=== PATIENT | male | born 1945 | race Caucasian/White ===

== ENCOUNTER → 2016-09-20 | Outpatient (CLI) | payer MEDICARE, OTHER ==
[~2016-09-20] MED LIST: CELE-19 PO; COUM1TAB17 PO; LYRI75CA PO; PERC5TAB6 PO; TYLETAB14 PO; vicodin OR
[2016-09-20 12:48] LABS: MEAN CORPUSCULAR HEMOGLOBIN 34.7 pg (27.0-33.0); MEAN CORPUSCULAR HGB CONC 33.7 g/dl (32.0-36.5); MEAN CORPUSCULAR VOLUME 103.2 fl (80.0-96.0); RED CELL DISTRIBUTION WIDTH 12.3 % (11.5-14.5); WHITE BLOOD COUNT 8.6 K/mm3 (4.0-10.0)
[2016-09-20 12:52] LABS: INR 0.97
[2016-09-20 13:32] LABS: ALBUMIN 4.2 GM/DL (3.2-5.2); ALBUMIN/GLOBULIN RATIO 1.14 (1.00-1.93); ALKALINE PHOSPHATASE 88 U/L (45-117); ALT/SGPT 32 U/L (12-78); ANION GAP 8 MEQ/L (8-16); AST/SGOT 29 U/L (15-37); BILIRUBIN,TOTAL 0.5 MG/DL (0.2-1.0); BLOOD UREA NITROGEN 13 MG/DL (7-18); CALCIUM LEVEL 9.3 MG/DL (8.8-10.2); CARBON DIOXIDE LEVEL 30 MEQ/L (21-32); CHLORIDE LEVEL 100 MEQ/L (98-107); CREATININE FOR GFR 1.02 MG/DL (0.70-1.30); GLOMERULAR FILTRATION RATE > 60.0 (>49); GLUCOSE, FASTING 92 MG/DL (80-110); POTASSIUM SERUM 3.9 MEQ/L (3.5-5.1); SODIUM LEVEL 138 MEQ/L (136-145); TOTAL PROTEIN 7.9 GM/DL (6.4-8.2)
--- NOTE | 2016-09-20 14:19 | REP ---
Chest two views HISTORY: Preop Comparison: 06/17/2015 The lungs are clear. The heart is normal in size. The pulmonary vasculature is normal in appearance. The bony structure is intact. IMPRESSION: No acute disease. Signed by Juan Gunter MD 09/20/2016 02:10 P
--- NOTE | 2016-09-21 20:41 | ECGEPIP ---
Stationary ECG Study [facility] Test Date: 2016-09-20 Pat Name: EMPERATRIZ PALMER Department: Room: - Gender: M [employer] Supervisor: MARLENY : 1945 Requested By: Benjamin Miranda Order Number: [id number] Reading MD: Henrik Rosa Measurements Intervals Rickman Rate: 73 P: 81 SC: 150 QRS: -8 QRSD: 81 T: 54 QT: 373 QTc: 412 Interpretive Statements SINUS RHYTHM Borderline low limb lead voltages. Electronically Signed On 09-21-2016 20:41:11 EDT by Henrik Rosa
== END ==
LOC: M ADMPAT 10:28
PROVIDERS: ATTEND Orthopaedic Surgery
DX: M17.12 Unilateral primary osteoarthritis, left knee (principal); Z79.01 Long term (current) use of anticoagulants

== ENCOUNTER 2016-10-03 06:56 | Inpatient (IN) | payer OTHER, MEDICAID ==
[2016-09-20 11:21] VITALS: BP 156/82
--- NOTE | 2016-09-27 14:14 | HPE ---
DATE OF ADMISSION: 10/03/2016 ATTENDING PHYSICIAN: Dr. Kaufman CHIEF COMPLAINT: Left hip pain. HISTORY: This a pleasant 70-year-old male patient with progressively worsening left hip pain and stiffness. He has failed to improve with conservative management. He has pain with weightbearing activities and activities of daily living, such as tying his shoes. He has elected for surgery for his continued symptoms. He has consented for a left total hip arthroplasty by Dr. Kaufman. X-rays of the left hip notable for end-stage degenerative changes of the left hip. ALLERGIES: NO KNOWN DRUG ALLERGIES. CURRENT MEDICATIONS: Mobic 15 mg one tablet as needed. He will discontinue that 5 days prior to surgery, Tylenol #3 with codeine as needed for pain. MEDICAL HISTORY: Includes symptomatic osteoarthritis of the left hip and spinal stenosis. SURGERY HISTORY: He has had a right total hip arthroplasty completed. FAMILY HISTORY: Noncontributory. SOCIAL HISTORY: He does not smoke. He does not use alcohol. He is retired. REVIEW OF SYSTEMS: Denies fever or chills. Denies chest pain, shortness breath or cough. Denies difficulty breathing. Denies nausea or vomiting. Denies abdominal pain. Notes persistent pain in his left hip. Denies current troubles with his back. PHYSICAL EXAMINATION : Exam today reveals a well-nourished, well-developed, alert male patient. He ambulates with a slow gait. He favors his left side. He does not use assistive devices. Examination of the left hip reveals skin to be intact. There is irritability on hip range of motion. There is very limited range of motion of the left hip on exam. Straight leg raise testing is negative bilaterally. Well perfused left lower extremity. Intact to light touch with dorsalis pedis, posterior tibialis pulses are palpable. Neck is supple without adenopathy or jugular venous distention (JVD). Lungs are clear to auscultation without rales or wheeze. Heart has regular rate and rhythm. Abdomen: Bowel sounds are present. Current vital signs: Height 5 feet 11 inches , weight 150 pounds, temperature 97.2, blood pressure 160/92, respirations 13, pulse 80. LABORATORY DATA: Chest x-ray showed no acute cardiopulmonary process noted. EKG sinus rhythm. Sed rate is 7. Urinalysis within normal limits. Nasal culture with normal frances. Urine culture with no growth. PT 13.0, INR 0.97, WBC count 8.6, red blood cell count of 4.0, hemoglobin 14.0, hematocrit 41.6, glucose 92, BUN 13, creatinine 1.02, sodium 138, potassium 3.9. IMPRESSION: Symptomatic osteoarthritis of the left hip. PLAN: Consented for a left total hip arthroplasty by Dr. Kaufman. BRUNO
[2016-10-03] VITALS (7 sets, daily range): BP systolic 135–188; BP diastolic 64–88
[~2016-10-03] VITALS: Ht 177.8 cm; Wt 68.0 kg
[2016-10-03] MEDS ORDERED: PERCOCET 5MG/325MG TAB PO ONE (07:15)
[2016-10-03] MEDS ORDERED: LR 1,000 ML IV ONE (07:15)
[2016-10-03] MEDS ORDERED: LR 1,000 ML IV SCH ×2 (07:15→12:45)
[2016-10-03] MEDS ORDERED: CelecoXIB 400 MG CAP PO ONE (07:15)
[2016-10-03] MEDS: ASCORBIC ACID 500 MG TAB PO SCH (09:00)
[2016-10-03] MEDS: MOM 30ML SUSPENSION UDC PO SCH (09:00)
[2016-10-03] MEDS ORDERED: BUPIVACAINE/EPIN 0.25% 30 ML VIAL As Ordered ONE (09:14)
[2016-10-03] MEDS ORDERED: BUPIVACAINE HCL 0.25% 30 ML VIAL As Ordered ONE (09:15)
[2016-10-03] MEDS ORDERED: EPINEPHrine INJ 1 MG/ML 1ML AMP As Ordered ONE (09:15)
[2016-10-03] MEDS ORDERED: TRANEXAMIC ACID 100 MG/ML 10ML VIAL As Ordered ONE (09:15)
[2016-10-03] MEDS ORDERED: ceFAZolin 1GM INJ (J0690) As Ordered ONE (09:15)
[2016-10-03] MEDS ORDERED: fentaNYL 100 MCG/2 ML INJECTION (J3010) As Ordered ONE ×2 (10:10→10:51)
[2016-10-03] MEDS ORDERED: MIDAZOLAM INJ 2 MG/2 ML VIAL (J2250) As Ordered ONE (10:51)
[2016-10-03] MEDS ORDERED: PROPOFOL 200 MG/20 ML VIAL As Ordered ONE ×2 (10:51→11:31)
[2016-10-03] MEDS ORDERED: ePHEDrine SULFATE 25 MG/5 ML(5MG/ML) SYRINGE As Ordered ONE (10:51)
[2016-10-03] MEDS ORDERED: LIDOCAINE 2% INJ 100 MG/5 ML SDV (FOR ANES.) As Ordered ONE (10:51)
[2016-10-03] MEDS ORDERED: fentaNYL 100 MCG/2 ML INJECTION (J3010) IV PRN (12:45)
[2016-10-03] MEDS ORDERED: ONDANSETRON 4MG/2ML VIAL (J2405) IV PRN (12:45)
[2016-10-03] MEDS ORDERED: HYDROmorphone HCL 1 MG/ML SYRINGE (J1170) IV PRN ×3 (12:45→14:00)
[2016-10-03] MEDS ORDERED: PERCOCET 5MG/325MG TAB PO PRN ×2 (12:45→14:30)
[2016-10-03] MEDS ORDERED: ACETAMINOPHEN TAB 650MG DOSE (2X325MG) PO PRN ×2 (14:00→14:30)
[2016-10-03] MEDS ORDERED: FLEET ENEMA PR PRN (14:00)
[2016-10-03] MEDS ORDERED: PATIENT IS CURRENTLY ON AN ON-Q PAIN BUSTER PAIN RELIEF SYSTEM XX SCH (14:15)
[2016-10-03] MEDS ORDERED: PROMETHAZINE 25 MG TAB PO PRN (14:30)
[2016-10-03] MEDS: PERCOCET 5MG/325MG TAB PO PRN ×3 (14:52→22:34)
[2016-10-03] MEDS ORDERED: WARFARIN SOD 2.5 MG TAB PO SCH (17:00)
[2016-10-03] MEDS ORDERED: WARFARIN SOD 1 MG TAB PO SCH (17:00)
--- NOTE | 2016-10-03 20:45 | CR.PDOC ---
[facility] Consultation Consultation DATE OF CONSULTATION: 10/03/16 REFERRING PROVIDER: Simone El M.D. ATTENDING PHYSICIAN: Dr. Kaufman REASON FOR CONSULTATION/CHIEF COMPLAINT: . Medical Management HISTORY OF PRESENT ILLNESS: . 71-year-old male with past medical history of spinal stenosis and osteoarthritis has been admitted under the orthopedic service for left total hip arthroplasty. The hospitalist service has been consulted to aid in medical comanagement. At this time, the patient states that he is feeling well and denies any acute complaints of fevers, chills, chest pain, shortness breath, palpitations, abdominal pain, or any nausea/vomiting/diarrhea. ALLERGIES: Please see below. HOME MEDICATIONS: Please see below. PAST MEDICAL HISTORY: As noted in HPI PAST SURGICAL HISTORY: Right total hip arthroplasty FAMILY HISTORY: Noncontributory SOCIAL HISTORY: Denies any alcohol, tobacco, or illicit drug use. Functionally independent at baseline, and ambulates without any assistive devices. REVIEW OF SYSTEMS: 10 point review of systems negative unless otherwise specified PHYSICAL EXAMINATION: VITAL SIGNS: Please see below. GENERAL APPEARANCE: . Awake, alert, oriented, in no acute distress HEENT: . Normocephalic, atraumatic RESPIRATORY: . Clear to auscultation bilaterally CARDIOVASCULAR: . Normal rate, normal rhythm ABDOMEN: . Soft, nontender, nondistended EXTREMITIES: . Left hip noted to be wrapped in surgical dressing. Range of motion limited secondary to recent surgical intervention. Neurovascularly intact distally LABORATORY DATA: Please see below. ASSESSMENT/PLAN: Osteoarthritis of the left hip status post left total hip arthroplasty We will defer pain management and DVT prophylaxis to the primary service Fortunately the patient does not have any other medical comorbidities, and is not on any other prescribed medications. The patient will be followed by Dr. Gamboa of the hospitalist service, should there be any questions about the patient's medical management. Vital Signs/I&O Vital Signs Date Time Temp Pulse Resp B/P (MAP) Pulse Ox O2 Delivery O2 Flow Rate FiO2 10/03/16 18:50 18 10/03/16 18:15 98.0 67 152/71 (98) 94 Room Air 10/03/16 13:20 2 Allergies Coded Allergies: No Known Drug Allergy (Verified Allergy, Unknown, 10/03/16) Home Medications Scheduled PRN Acetaminophen/Codeine (Tylenol/Codeine #3 300-30 mg) 1 Tab Tab, 2 TAB PO Q12HP PRN for PAIN, (Reported) SIMONE EL MD Oct 03, 2016 20:45
[2016-10-04 06:00] VITALS: BP 154/67
[2016-10-04 06:58] LABS: MEAN CORPUSCULAR HEMOGLOBIN 34.6 pg (27.0-33.0); MEAN CORPUSCULAR VOLUME 104.8 fl (80.0-96.0); RED CELL DISTRIBUTION WIDTH 12.1 % (11.5-14.5); WHITE BLOOD COUNT 9.9 K/mm3 (4.0-10.0)
[2016-10-04 07:02] LABS: INR 1.22
[2016-10-04] MEDS: PERCOCET 5MG/325MG TAB PO PRN ×3 (07:05→20:12)
[2016-10-04 07:14] LABS: ANION GAP 2 MEQ/L (8-16); BLOOD UREA NITROGEN 12 MG/DL (7-18); CALCIUM LEVEL 8.7 MG/DL (8.8-10.2); CARBON DIOXIDE LEVEL 33 MEQ/L (21-32); CHLORIDE LEVEL 98 MEQ/L (98-107); CREATININE FOR GFR 1.08 MG/DL (0.70-1.30); GLOMERULAR FILTRATION RATE > 60.0 (>49); GLUCOSE, FASTING 136 MG/DL (80-110); POTASSIUM SERUM 4.3 MEQ/L (3.5-5.1); SODIUM LEVEL 133 MEQ/L (136-145)
[2016-10-04] MEDS ORDERED: CelecoXIB (CeleBREX) 100 MG CAP PO ONE (09:00)
[2016-10-04] MEDS ORDERED: MIRALAX *UNIT DOSE* 17GM PACKET PO SCH (09:00)
[2016-10-04] MEDS: MOM 30ML SUSPENSION UDC PO SCH (09:08)
[2016-10-04] MEDS: ASCORBIC ACID 500 MG TAB PO SCH (09:09)
[2016-10-04] MEDS: SENOKOT S TAB PO SCH ×2 (09:09→20:12)
[2016-10-04 10:00] VITALS: BP 157/76
--- NOTE | 2016-10-04 11:23 | RO ---
DATE OF PROCEDURE: 10/03/2016 PREPROCEDURE DIAGNOSIS: Left hip osteoarthritis. POSTPROCEDURE DIAGNOSIS: Left hip osteoarthritis. PROCEDURE: Left total hip replacement. SURGEON: Dr. Benjamin Kaufman. BEACH EXPERT: ISAURA Capellan ANESTHESIA: Spinal, Dr. White. ESTIMATED BLOOD LOSS: Less than 200 mL, replaced with Crystalloid. COMPLICATIONS: None. PainBuster pump implant also utilized. COMPONENTS USED: Include DePuy [place] Press-Fit sized 6 high offset femoral component +1.5 neck length 36 mm femoral head, 56 mm acetabular shell, 36 mm polyethylene implant/spacer, apex hole eliminator. INDICATIONS: 71-year-old gentleman with progressive discomfort in the left hip who has elected for operative intervention with radiographic evidence of severe hip arthritis and deformity. Consent reviewed in detail with the patient including errol discussion of the pathology involved, the procedure proposed, alternatives including doing nothing and risks including but not limited to pain , failure, infection, bleeding, blood loss, incomplete relief of symptoms, dislocation, blood clots or other problems. The patient agrees to proceed with surgery. OPERATIVE COURSE: Brought to the operating room. Spinal was administered. Positioned for exposure of the left hip for arthroplasty in the lateral decubitus position. The approach is a modified [place] approach. He was sterilely prepped and draped in usual fashion. Time-out was accomplished. Line of the incision was based on bony landmarks and infiltrated with 0.25% Marcaine with epinephrine. A incision made with a 10 blade knife. I stood on the patient's posterior and Mr. Oglesby on the anterior. I developed dissection to the lateral fascia. Lateral fascia was exposed and split parallel with its fibers using Saldana scissor exposing the abductor mechanism. I removed bursal tissue. I identified the anterior one-third of the abductor mechanism and a split was created at the 2 o'clock position. Next, Meyerding's were applied. I utilized the hot knife to open the hip capsule, split the labrum, reflected the head of the vastus. A cuff of tissue was left at the greater trochanter as the abductor mechanism was released at its anterior aspect. The dissection continued into the vastus lateralis which was also split. The dissection continued releasing capsule and until I was able to palpate digitally the lesser trochanter. Next the hip was dislocated using the bone hook and Mr. Oglesby applying traction and rotation. Femoral head was appreciated to be flattened and with quite significant osteophytes. Next, femoral canal was entered with the canal finder followed by the lateralizer followed by conical reamers through a size 6 as templated. Next , femoral neck cut made using the template and the oscillating saw by myself. Femoral head was removed. Next we repositioned the extremity for exposure at the acetabulum. I applied the anterior and posterior retractors. Mr. Oglesby secured the retractors and assisted in exposure. I removed the transverse acetabular ligament and cleared the acetabular fossa of soft tissue. I removed the acetabular labrum using the hot knife. Next, we then utilized the hemispherical reamers to ream the acetabulum beginning with a size 47 and working through a size 55 reamer. I then trialed for the 56 acetabulum and that trial fit appropriately. Next, irrigation was accomplished with pulse lavage. The non-trial acetabulum was obtained and using the targeting device, I seated the acetabulum using a mallet. Next, we verified the acetabular component was in the floor of the acetabulum, applied the apex hole eliminator and installed the 36 mm liner. It was tamped into place and verified. Next, there did not seem to be prominent osteophytes extending beyond the acetabulum. Next, attention was turned to the femoral side. We utilized broaches through a size 6 broach which seems to fit appropriately. Neck length was approximately one fingerbreadth from the lesser trochanter. Next, I trialed with a high offset neck +1.5. This seemed to fit appropriately and was stable with internal rotation and flexion as well as external rotation. Next, these components were dislocated, removed the trial components, irrigated, pulse lavage and then we installed the non-trial 6 high offset stem followed by the 36 mm non-trial head +1.5. Next the hip was again relocated. The wound irrigated including irrigation with TXA solution which was allowed to stand for 1 minute. Next, once the TXA was evacuated, I reapproximated capsular tissue with interrupted stitch and reapproximated the abductor mechanism with interrupted as well as mattress stitch to the cuff tissue at the greater trochanter. Vastus lateralis was also reapproximated. Next, lateral fascia was reapproximated using interrupted as well as Stratafix stitch. Deep dermis approximated using interrupted stitch. Pernio dressing was applied allowed to cure. The patient then moved to recovery room in good condition at the conclusion of the procedure. For further details, please refer to the medical record. BRUNO
[2016-10-04 14:00] VITALS: BP 145/68
[2016-10-04] MEDS ORDERED: WARFARIN SOD 5 MG TAB PO ONE (17:00)
[2016-10-04] MEDS ORDERED: MAALOX 30 ML SUSP *UDC PO PRN (18:00)
--- NOTE | 2016-10-04 19:09 | REP ---
AP LATERAL LEFT HIP: 10/04/2016: Clinical history: Status post left total hip arthroplasty. Check position. Findings: AP and cross-table lateral views show the two components of the total hip arthroplasty well-aligned in relationship to the [place] bone and each other. There is a pain catheter draped over the lateral aspect of the hip. Pubic rami, symphysis pubis, left SI joint and acetabular margins are unremarkable. No fracture or avulsion. Impression: 1. Status post left total hip arthroplasty. Signed by Skip Guardado MD 10/05/2016 03:19 P
[2016-10-04 22:00] VITALS: BP 129/67
[2016-10-05] MEDS: PERCOCET 5MG/325MG TAB PO PRN ×2 (05:30→11:15)
[2016-10-05 06:00] VITALS: BP 132/67
[2016-10-05 06:58] LABS: INR 1.55
[2016-10-05] MEDS ORDERED: COUM2.5T11 PO (09:12)
[2016-10-05] MEDS ORDERED: PERC5TAB6 PO (09:12)
[2016-10-05] MEDS: SENOKOT S TAB PO SCH (11:11)
[2016-10-05] MEDS: ASCORBIC ACID 500 MG TAB PO SCH (11:11)
--- NOTE | 2016-10-11 09:35 | DSES ---
DATE OF ADMISSION: 10/03/2016 DATE OF DISCHARGE: 10/05/2016 ADMITTING DIAGNOSIS: Symptomatic left hip osteoarthritis. DISCHARGE DIAGNOSIS: Status post left total hip arthroplasty. HISTORY OF PRESENT ILLNESS: This is a pleasant male with continuing symptomatic left hip osteoarthritis. He consented for a left total hip arthroplasty per Dr. Benjamin Kaufman. Medical optimization per primary care physician. X-rays were consistent with advanced osteoarthritis. OPERATION PERFORMED: Left total hip arthroplasty. HOSPITAL COURSE: The patient uneventfully underwent a left total hip arthroplasty on 10/03/2016, under spinal anesthesia and was returned to recovery comfortable. Our hospital team decided to discharge the patient on 10/05/2016 with the following instructions. Weightbearing as tolerated left lower extremity with walker. Coumadin and thromboembolic deterrent (ZAMZAM) stockings times 30 days. Percocet as needed, pain. Diet is regular. Optifoam dressing change in 4 days' time. Followup at orthopedic group in 12-14 days for wound check, staple removal. The patient is encouraged to contact our office sooner with increased pain, numbness and tingling down the lower extremity, redness, drainage, fever greater than 101 or further concerns. BRUNO
== END 2016-10-05 12:07 | disposition home health service (06) | DRG 470 ==
LOC: M OR 06:56 → M MS5PR 13:35
PROVIDERS: ADMIT Orthopaedic Surgery; ATTEND Orthopaedic Surgery
PROC: 0SRB02Z Replacement of Left Hip Joint with Metal on Polyethylene Synthetic Substitute, Open Approach (ICD-10-PCS; principal; 2016-10-03 09:45)
DX: M16.12 Unilateral primary osteoarthritis, left hip (principal); M48.00 Spinal stenosis, site unspecified; Z96.641 Presence of right artificial hip joint; Z79.899 Other long term (current) drug therapy